=== PATIENT | female | born 1940 | race Two or more races ===

== ENCOUNTER 2018-08-07 12:03 | Inpatient (IN) | payer MEDICARE, OTHER ==
[~2018-08-07] VITALS: Ht 157.5 cm; Wt 58.0 kg
[2018-08-07] MEDS ORDERED: MECLIZINE CHEWABLE 25 MG TAB PO ONE (12:30)
[2018-08-07] MEDS ORDERED: SODIUM CHLORIDE FLUSH 10ML SYR IVF ONE (12:30)
[2018-08-07 12:45] LABS: BASOPHILS # (AUTO) 0.05 x10^3/uL (0-0.1); BASOPHILS % (AUTO) 1 % (0-1); EOSINOPHILS # (AUTO) 0.08 x10^3/uL (0-0.4); EOSINOPHILS % (AUTO) 1 % (1-7); LYMPHOCYTES # (AUTO) 0.79 x10^3/uL (1-3.4); LYMPHOCYTES % (AUTO) 8 % (22-44); MD NO; MEAN CORPUSCULAR HEMOGLOBIN 29.9 pg (27.0-34.8); MEAN CORPUSCULAR VOLUME 90.4 fL (80-100); MEAN PLATELET VOLUME 9.4 fL (7.4-10.4); MONOCYTES # (AUTO) 0.33 x10^3/uL (0.2-0.8); MONOCYTES % (AUTO) 3 % (2-9); NEUTROPHILS # (AUTO) 8.84 x10^3/uL (1.8-6.8); NEUTROPHILS % (AUTO) 88 % (42-75); PLATELET COUNT 157 x10^3/uL (130-400); RED BLOOD COUNT 4.68 x10^6/uL (3.82-5.3); RED CELL DISTRIBUTION WIDTH 15.1 % (9.6-15.2)
[2018-08-07] MEDS ORDERED: MECLIZINE CHEWABLE 25 MG TAB ONE (12:50)
[2018-08-07 12:53] LABS: INTERNATIONAL NORMALIZED RATIO 1.01 (0.93-1.1); PROTHROMBIN TIME 10.7 Seconds (9.6-11.5)
[2018-08-07 12:56] LABS: ALANINE AMINOTRANSFERASE 16 U/L (12-78); ANION GAP 10 mmol/L (5-15); CALCIUM 8.8 mg/dL (8.5-10.1); CHLORIDE 106 mmol/L (98-107)
[2018-08-07 13:00] LABS: ALKALINE PHOSPHATASE 80 U/L (45-117); BILIRUBIN,TOTAL 0.9 mg/dL (0.2-1.0); CREATININE 0.74 mg/dL (0.55-1.02); TOTAL PROTEIN 7.6 g/dL (6.4-8.2); TROPONIN I < 0.015 ng/mL (0.000-0.045)
[2018-08-07 13:10] LABS: CULTURE INDICATED? NO; MICROSCOPIC AUTO
[2018-08-07] MEDS ORDERED: ONDANSETRON 2MG/ML, 2ML ONE (14:07)
[2018-08-07] MEDS ORDERED: MORPHINE SULFATE 4 MG/ML, 1ML ONE (14:07)
[2018-08-07] MEDS ORDERED: MORPHINE SULFATE 4 MG/ML, 1ML IVPush PRN (14:30)
[2018-08-07] MEDS ORDERED: ONDANSETRON 2MG/ML, 2ML IVPush ONE (14:30)
[2018-08-07] MEDS ORDERED: SODIUM CHLORIDE FLUSH 10ML SYR IVF PRN (15:00)
[2018-08-07] MEDS ORDERED: AMLO10TA6 PO (15:38)
[2018-08-07] MEDS ORDERED: METO50TA82 PO (15:39)
[2018-08-07] MEDS ORDERED: SIMV20TA3 PO (15:40)
[2018-08-07] MEDS ORDERED: FLUO40CA2 PO (15:46)
[2018-08-07] MEDS ORDERED: SODIUM CHLORIDE 0.9% 1,000 ML IV SCH (15:54)
[2018-08-07] MEDS ORDERED: morphine SULFATE 10 MG/ML, 1ML IVPush PRN (16:00)
[2018-08-07] MEDS ORDERED: LABETALOL 5MG/ML, 20ML IVPush PRN (16:00)
[2018-08-07] MEDS ORDERED: hydrALAzine 20 MG/ML, 1ML IVPush PRN (16:00)
[2018-08-07 16:41] VITALS: BP 144/80
[2018-08-07 19:58] VITALS: BP 123/70
[2018-08-07] MEDS: SIMVASTATIN 20 MG TABLET PO SCH (21:00)
[2018-08-08 02:00] VITALS: BP 145/77
[2018-08-08 05:54] LABS: BASOPHILS # (AUTO) 0.02 x10^3/uL (0-0.1); BASOPHILS % (AUTO) 0 % (0-1); EOSINOPHILS # (AUTO) 0.13 x10^3/uL (0-0.4); EOSINOPHILS % (AUTO) 2 % (1-7); LYMPHOCYTES # (AUTO) 1.28 x10^3/uL (1-3.4); LYMPHOCYTES % (AUTO) 18 % (22-44); MD NO; MEAN CORPUSCULAR HGB CONC 33.2 g/dL (32.4-35.8); MEAN CORPUSCULAR VOLUME 90.4 fL (80-100); MEAN PLATELET VOLUME 9.2 fL (7.4-10.4); MONOCYTES # (AUTO) 0.67 x10^3/uL (0.2-0.8); MONOCYTES % (AUTO) 10 % (2-9); NEUTROPHILS # (AUTO) 4.94 x10^3/uL (1.8-6.8); NEUTROPHILS % (AUTO) 70 % (42-75); PLATELET COUNT 129 x10^3/uL (130-400); RED CELL DISTRIBUTION WIDTH 14.7 % (9.6-15.2)
[2018-08-08 05:55] LABS: ANION GAP 8 mmol/L (5-15); CALCIUM 8.3 mg/dL (8.5-10.1); CHLORIDE 111 mmol/L (98-107); CREATININE 0.68 mg/dL (0.55-1.02)
[2018-08-08] MEDS: AMLODIPINE 10 MG TAB PO SCH (09:11)
[2018-08-08] MEDS: FLUOXETINE HCL 20 MG CAPSULE PO SCH (09:11)
[2018-08-08 09:23] VITALS: BP 166/76
[2018-08-08] MEDS: METOPROLOL TARTRATE 50 MG TABLET PO SCH (09:25)
[2018-08-08] MEDS: SODIUM CHLORIDE 0.9% 1,000 ML IV SCH ×2 (09:26→22:50)
[2018-08-08 14:59] VITALS: BP 162/71
[2018-08-08 20:00] VITALS: BP 134/78
[2018-08-08] MEDS: SIMVASTATIN 20 MG TABLET PO SCH (21:38)
[2018-08-08] MEDS: OXYcodone IR 5MG TABLET PO PRN (21:38)
[2018-08-09 02:00] VITALS: BP 145/75
[2018-08-09 04:58] LABS: BASOPHILS # (AUTO) 0.02 x10^3/uL (0-0.1); BASOPHILS % (AUTO) 0 % (0-1); EOSINOPHILS % (AUTO) 3 % (1-7); LYMPHOCYTES # (AUTO) 1.67 x10^3/uL (1-3.4); LYMPHOCYTES % (AUTO) 26 % (22-44); MD NO; MEAN CORPUSCULAR HGB CONC 32.9 g/dL (32.4-35.8); MEAN CORPUSCULAR VOLUME 91.1 fL (80-100); MEAN PLATELET VOLUME 9.5 fL (7.4-10.4); MONOCYTES % (AUTO) 9 % (2-9); NEUTROPHILS # (AUTO) 3.99 x10^3/uL (1.8-6.8); NEUTROPHILS % (AUTO) 62 % (42-75); PLATELET COUNT 132 x10^3/uL (130-400); RED BLOOD COUNT 3.79 x10^6/uL (3.82-5.3); RED CELL DISTRIBUTION WIDTH 15.2 % (9.6-15.2)
[2018-08-09 05:03] LABS: ALBUMIN 3.1 g/dL (3.4-5.0); ANION GAP 7 mmol/L (5-15); CHLORIDE 110 mmol/L (98-107); CREATININE 0.62 mg/dL (0.55-1.02)
[2018-08-09 08:56] VITALS: BP 155/77
[2018-08-09] MEDS: AMLODIPINE 10 MG TAB PO SCH (08:59)
[2018-08-09] MEDS: FLUOXETINE HCL 20 MG CAPSULE PO SCH (08:59)
[2018-08-09] MEDS: METOPROLOL TARTRATE 50 MG TABLET PO SCH (09:00)
[2018-08-09] MEDS: OXYcodone IR 5MG TABLET PO PRN (09:00)
[2018-08-09] MEDS: SODIUM CHLORIDE 0.9% 1,000 ML IV SCH (10:49)
[2018-08-09 15:04] VITALS: BP 137/66
[2018-08-09] MEDS ORDERED: MIDAZOLAM 1 MG/ML, 2ML ONE (16:40)
[2018-08-09] MEDS ORDERED: FENTANYL PF 250 MCG/5ML ONE (16:40)
[2018-08-09] MEDS ORDERED: BUPIVACAINE/PF-EPI 0.5% 1:200K ONE (16:45)
[2018-08-09] MEDS ORDERED: BACITRACIN 50,000 UNIT ONE (16:45)
[2018-08-09] MEDS ORDERED: hydrALAzine 20 MG/ML, 1ML IV PRN (17:00)
[2018-08-09] MEDS ORDERED: PROMETHAZINE 25 MG/ML, 1ML IV PRN (17:00)
[2018-08-09] MEDS ORDERED: HYDROmorphone 2 MG/ML, 1ML IVPush PRN (17:00)
[2018-08-09] MEDS ORDERED: ACETAMINOPHEN 325 MG TABLET PO PRN (17:00)
[2018-08-09] MEDS ORDERED: HALOPERIDOL 5 MG/ML IV PRN (17:00)
[2018-08-09] MEDS ORDERED: FENTANYL PF 100 MCG/2ML IV PRN (17:00)
[2018-08-09] MEDS ORDERED: LABETALOL 5MG/ML, 20ML IV PRN (17:00)
[2018-08-09] MEDS ORDERED: MEPERIDINE/PF 25MG/0.5ML IVPush PRN (17:00)
[2018-08-09] MEDS ORDERED: OXYcodone 5 MG/5 ML ORAL.SOL UDC PO PRN (17:00)
[2018-08-09] MEDS ORDERED: NEOSTIGMINE 1 MG/ML, 10ML ONE (17:17)
[2018-08-09] MEDS ORDERED: CEFAZOLIN 1,000 MG ONE (17:17)
[2018-08-09] MEDS ORDERED: ONDANSETRON 2MG/ML, 2ML ONE (17:17)
[2018-08-09] MEDS ORDERED: PROPOFOL 10 MG/ML, 20ML ONE (17:17)
[2018-08-09] MEDS ORDERED: OXYcodone 5 MG/5 ML ORAL.SOL UDC ONE (18:58)
[2018-08-09 20:00] VITALS: BP 145/75
[2018-08-09] MEDS: SIMVASTATIN 20 MG TABLET PO SCH (21:32)
[2018-08-10 00:45] VITALS: BP 128/74
[2018-08-10] MEDS: CEFAZOLIN PMX 1GM/50ML 50 ML IVPB SCH ×2 (01:34→10:14)
[2018-08-10 07:44] VITALS: BP 136/75
[2018-08-10] MEDS: SODIUM CHLORIDE 0.9% 1,000 ML IV SCH ×2 (08:00→22:00)
[2018-08-10] MEDS: FLUOXETINE HCL 20 MG CAPSULE PO SCH (09:27)
[2018-08-10] MEDS: AMLODIPINE 10 MG TAB PO SCH (09:27)
[2018-08-10] MEDS: METOPROLOL TARTRATE 50 MG TABLET PO SCH (09:28)
[2018-08-10 15:46] VITALS: BP 129/76
[2018-08-10] MEDS: SIMVASTATIN 20 MG TABLET PO SCH (20:06)
[2018-08-10 20:28] VITALS: BP 131/69
[2018-08-10] MEDS: OXYcodone IR 5MG TABLET PO PRN (22:00)
[2018-08-11 01:43] VITALS: BP 152/73
[2018-08-11] MEDS: OXYcodone IR 5MG TABLET PO PRN ×2 (05:32→18:42)
[2018-08-11 09:10] VITALS: BP 114/61
[2018-08-11] MEDS: FLUOXETINE HCL 20 MG CAPSULE PO SCH (10:05)
[2018-08-11] MEDS: AMLODIPINE 10 MG TAB PO SCH (10:05)
[2018-08-11] MEDS: METOPROLOL TARTRATE 50 MG TABLET PO SCH (10:05)
[2018-08-11] MEDS: SODIUM CHLORIDE 0.9% 1,000 ML IV SCH (11:51)
[2018-08-11 14:49] VITALS: BP 114/63
[2018-08-11] MEDS: SIMVASTATIN 20 MG TABLET PO SCH (20:21)
[2018-08-11 21:13] VITALS: BP 142/74
[2018-08-12] MEDS: SODIUM CHLORIDE 0.9% 1,000 ML IV SCH ×2 (02:00→15:20)
[2018-08-12 02:21] VITALS: BP 148/64
[2018-08-12 08:25] VITALS: BP 149/83
[2018-08-12] MEDS: OXYcodone IR 5MG TABLET PO PRN (08:31)
[2018-08-12] MEDS: METOPROLOL TARTRATE 50 MG TABLET PO SCH (08:32)
[2018-08-12] MEDS: AMLODIPINE 10 MG TAB PO SCH (08:32)
[2018-08-12] MEDS: FLUOXETINE HCL 20 MG CAPSULE PO SCH (08:32)
[2018-08-12] MEDS ORDERED: BISACODYL 10 MG SUPP PR PRN (11:30)
[2018-08-12] MEDS ORDERED: DOCUSATE 50 MG/5 ML, 10ML UDC PO SCH (11:30)
[2018-08-12 13:52] VITALS: BP 132/64
[2018-08-12 20:25] VITALS: BP 141/68
[2018-08-12] MEDS: DOCUSATE 100 MG CAPSULE PO SCH (21:13)
[2018-08-12] MEDS: SIMVASTATIN 20 MG TABLET PO SCH (21:13)
[2018-08-13 01:57] VITALS: BP 143/72
[2018-08-13] MEDS: OXYcodone IR 5MG TABLET PO PRN ×2 (02:28→17:50)
[2018-08-13 06:52] VITALS: BP 148/75
[2018-08-13] MEDS: FLUOXETINE HCL 20 MG CAPSULE PO SCH (08:17)
[2018-08-13] MEDS: DOCUSATE 100 MG CAPSULE PO SCH ×2 (08:17→22:31)
[2018-08-13] MEDS: AMLODIPINE 10 MG TAB PO SCH (08:17)
[2018-08-13] MEDS: METOPROLOL TARTRATE 50 MG TABLET PO SCH (08:17)
[2018-08-13 13:05] VITALS: BP 100/59
[2018-08-13 19:58] VITALS: BP 129/75
[2018-08-13] MEDS: SIMVASTATIN 20 MG TABLET PO SCH (22:31)
[2018-08-14] MEDS: OXYcodone IR 5MG TABLET PO PRN ×2 (06:52→23:36)
[2018-08-14] MEDS: ACETAMINOPHEN 325 MG TABLET PO PRN ×2 (06:52→23:36)
[2018-08-14 07:53] VITALS: BP 130/78
[2018-08-14] MEDS: DOCUSATE 100 MG CAPSULE PO SCH ×2 (08:33→23:33)
[2018-08-14] MEDS: METOPROLOL TARTRATE 50 MG TABLET PO SCH (08:33)
[2018-08-14] MEDS: AMLODIPINE 10 MG TAB PO SCH (08:33)
[2018-08-14] MEDS: FLUOXETINE HCL 20 MG CAPSULE PO SCH (08:33)
[2018-08-14 13:48] VITALS: BP 113/62
[2018-08-14] MEDS ORDERED: OXYC5TAB3 PO (14:37)
[2018-08-14 20:32] VITALS: BP 131/78
[2018-08-14] MEDS: SIMVASTATIN 20 MG TABLET PO SCH (23:32)
[2018-08-15 01:42] VITALS: BP 129/78
[2018-08-15 07:15] VITALS: BP 140/74
[2018-08-15] MEDS: DOCUSATE 100 MG CAPSULE PO SCH ×2 (08:36→21:20)
[2018-08-15] MEDS: AMLODIPINE 10 MG TAB PO SCH (08:36)
[2018-08-15] MEDS: FLUOXETINE HCL 20 MG CAPSULE PO SCH (08:36)
[2018-08-15] MEDS: METOPROLOL TARTRATE 50 MG TABLET PO SCH (08:36)
[2018-08-15 15:06] VITALS: BP 125/63
[2018-08-15 21:08] VITALS: BP 129/80
[2018-08-15] MEDS: OXYcodone IR 5MG TABLET PO PRN (21:19)
[2018-08-15] MEDS: ACETAMINOPHEN 325 MG TABLET PO PRN (21:19)
[2018-08-15] MEDS: SIMVASTATIN 20 MG TABLET PO SCH (21:20)
[2018-08-16 03:43] VITALS: BP 133/70
[2018-08-16 08:10] VITALS: BP 141/84
[2018-08-16] MEDS: FLUOXETINE HCL 20 MG CAPSULE PO SCH (09:34)
[2018-08-16] MEDS: AMLODIPINE 10 MG TAB PO SCH (09:34)
[2018-08-16] MEDS: METOPROLOL TARTRATE 50 MG TABLET PO SCH (09:34)
[2018-08-16] MEDS: DOCUSATE 100 MG CAPSULE PO SCH ×2 (09:34→20:24)
[2018-08-16 13:13] VITALS: BP 108/61
[2018-08-16] MEDS: ACETAMINOPHEN 325 MG TABLET PO PRN ×2 (13:21→21:55)
[2018-08-16] MEDS: OXYcodone IR 5MG TABLET PO PRN ×2 (13:21→21:55)
[2018-08-16 20:03] VITALS: BP 132/72
[2018-08-16] MEDS: SIMVASTATIN 20 MG TABLET PO SCH (20:24)
[2018-08-17 01:44] VITALS: BP 146/74
[2018-08-17 07:56] VITALS: BP 140/74
[2018-08-17] MEDS: FLUOXETINE HCL 20 MG CAPSULE PO SCH (10:39)
[2018-08-17] MEDS: METOPROLOL TARTRATE 50 MG TABLET PO SCH (10:39)
[2018-08-17] MEDS: DOCUSATE 100 MG CAPSULE PO SCH ×2 (10:39→20:53)
[2018-08-17] MEDS: AMLODIPINE 10 MG TAB PO SCH (10:39)
[2018-08-17 13:08] VITALS: BP 110/63
[2018-08-17] MEDS: ACETAMINOPHEN 325 MG TABLET PO PRN ×2 (17:45→22:13)
[2018-08-17 20:21] VITALS: BP 146/75
[2018-08-17] MEDS: SIMVASTATIN 20 MG TABLET PO SCH (20:53)
[2018-08-17] MEDS: OXYcodone IR 5MG TABLET PO PRN (22:14)
[2018-08-18 02:29] VITALS: BP 144/73
[2018-08-18 07:24] VITALS: BP 155/73
[2018-08-18] MEDS: DOCUSATE 100 MG CAPSULE PO SCH ×2 (09:00→21:36)
[2018-08-18] MEDS: FLUOXETINE HCL 20 MG CAPSULE PO SCH (10:28)
[2018-08-18] MEDS: METOPROLOL TARTRATE 50 MG TABLET PO SCH (10:28)
[2018-08-18] MEDS: AMLODIPINE 10 MG TAB PO SCH (10:29)
[2018-08-18 12:45] VITALS: BP 122/73
[2018-08-18 19:26] VITALS: BP 133/71
[2018-08-18] MEDS: OXYcodone IR 5MG TABLET PO PRN (21:36)
[2018-08-18] MEDS: SIMVASTATIN 20 MG TABLET PO SCH (21:36)
[2018-08-18] MEDS: ACETAMINOPHEN 325 MG TABLET PO PRN (21:36)
[2018-08-19 02:09] VITALS: BP 122/71
[2018-08-19] MEDS: ENOXAPARIN 40 MG/0.4 ML SQ SCH (07:45)
[2018-08-19 08:00] VITALS: BP 131/65
[2018-08-19] MEDS: FLUOXETINE HCL 20 MG CAPSULE PO SCH (10:01)
[2018-08-19] MEDS: DOCUSATE 100 MG CAPSULE PO SCH ×2 (10:01→21:57)
[2018-08-19] MEDS: ASPIRIN 81 MG TABLET CHEW PO SCH (10:01)
[2018-08-19] MEDS: AMLODIPINE 10 MG TAB PO SCH (10:02)
[2018-08-19] MEDS: METOPROLOL TARTRATE 50 MG TABLET PO SCH (10:02)
[2018-08-19 13:54] VITALS: BP 113/61
[2018-08-19] MEDS: ACETAMINOPHEN 325 MG TABLET PO PRN ×2 (15:25→21:59)
[2018-08-19] MEDS: OXYcodone IR 5MG TABLET PO PRN ×2 (15:25→21:56)
[2018-08-19 19:12] VITALS: BP 122/73
[2018-08-19] MEDS: SIMVASTATIN 20 MG TABLET PO SCH (21:57)
[2018-08-20 02:22] VITALS: BP 116/66
[2018-08-20 06:02] LABS: CREATININE 0.52 mg/dL (0.55-1.02)
[2018-08-20] MEDS: FLUOXETINE HCL 20 MG CAPSULE PO SCH (09:28)
[2018-08-20] MEDS: ENOXAPARIN 40 MG/0.4 ML SQ SCH (09:28)
[2018-08-20] MEDS: AMLODIPINE 10 MG TAB PO SCH (09:28)
[2018-08-20] MEDS: DOCUSATE 100 MG CAPSULE PO SCH ×2 (09:28→22:49)
[2018-08-20] MEDS: METOPROLOL TARTRATE 50 MG TABLET PO SCH (09:29)
[2018-08-20] MEDS: ASPIRIN 81 MG TABLET CHEW PO SCH (09:29)
[2018-08-20 09:34] VITALS: BP 115/66
[2018-08-20] MEDS: OXYcodone IR 5MG TABLET PO PRN ×2 (10:14→22:50)
[2018-08-20] MEDS: GUAIFENESIN 200 MG TABLET PO SCH ×3 (10:14→22:50)
[2018-08-20] MEDS: ACETAMINOPHEN 325 MG TABLET PO PRN ×2 (10:14→22:51)
[2018-08-20 14:00] VITALS: BP 114/63
[2018-08-20 19:59] VITALS: BP 130/69
[2018-08-20] MEDS: SIMVASTATIN 20 MG TABLET PO SCH (22:50)
[2018-08-21 02:39] VITALS: BP 114/57
[2018-08-21 06:25] VITALS: BP 131/73
[2018-08-21] MEDS: GUAIFENESIN 200 MG TABLET PO SCH ×2 (06:40→11:00)
[2018-08-21] MEDS: ENOXAPARIN 40 MG/0.4 ML SQ SCH (08:36)
[2018-08-21] MEDS: FLUOXETINE HCL 20 MG CAPSULE PO SCH (09:39)
[2018-08-21] MEDS: AMLODIPINE 10 MG TAB PO SCH (09:40)
[2018-08-21] MEDS: METOPROLOL TARTRATE 50 MG TABLET PO SCH (09:40)
[2018-08-21] MEDS: ASPIRIN 81 MG TABLET CHEW PO SCH (09:40)
[2018-08-21] MEDS: DOCUSATE 100 MG CAPSULE PO SCH (09:40)
[2018-08-21] MEDS: ACETAMINOPHEN 325 MG TABLET PO PRN (09:46)
[2018-08-21] MEDS: OXYcodone IR 5MG TABLET PO PRN (09:46)
[2018-08-21] MEDS ORDERED: ASPI-515 PO (12:03)
[2018-08-21 12:23] VITALS: BP 123/66
[2018-08-21 15:16] VITALS: BP 124/68
== END 2018-08-21 15:35 | DRG 493 ==
LOC: ED 14:38 → EDIP 14:39 → ED 15:02 → 4NOR 16:00
PROVIDERS: ADMIT Internal Medicine; ATTEND Family Medicine
PROC: 0QSJ04Z Reposition Right Fibula with Internal Fixation Device, Open Approach (ICD-10-PCS; 2018-08-09)
PROC: 0QSG04Z Reposition Right Tibia with Internal Fixation Device, Open Approach (ICD-10-PCS; principal; 2018-08-09 14:00)
DX: S82.841A Displaced bimalleolar fracture of right lower leg, initial encounter for closed fracture (principal); D62 Acute posthemorrhagic anemia; E78.00 Pure hypercholesterolemia, unspecified; I11.9 Hypertensive heart disease without heart failure; I25.10 Atherosclerotic heart disease of native coronary artery without angina pectoris; M85.80 Other specified disorders of bone density and structure, unspecified site; W18.30XA Fall on same level, unspecified, initial encounter; X50.1XXA Overexertion from prolonged static or awkward postures, initial encounter; Z95.5 Presence of coronary angioplasty implant and graft; Y93.89 Activity, other specified; Y92.89 Other specified places as the place of occurrence of the external cause; Y99.8 Other external cause status
CPT/HCPCS: 29515; 36415; 70450; 76000; 80048; 80053; 81001; 82040; 82565; 84484; 84520; 85025; 85610; 85730; 93005; 96374; 96375; C1713; G0378; J0690; J1650; J2250; J2405; J2704; J2710; J3010; J7030